=== PATIENT | female | born 1935 | race Caucasian/White ===

== ENCOUNTER → 2017-09-04 | Outpatient (CLI) | payer MEDICARE, BC ==
--- NOTE | 2017-09-04 10:37 | US ---
EXAMINATION TYPE: US transvaginal DATE OF EXAM: 09/04/2017 COMPARISON: NONE CLINICAL HISTORY: R10.2 Pelvic Pain. recent pelvic discomfort that has since stopped, h/o bilateral o ophorectomy and she thinks her uterus remains TECHNIQUE: TV Date of LMP: 40 years ago EXAM MEASUREMENTS: Uterus: atrophic versus possible hysterectomy Endometrial Stripe: not seen Right Ovary: Surgically absent Left Ovary: Surgically absent 1. Bilateral Adnexa: wnl 2. Posterior cul-de-sac: wnl IMPRESSION: 1. Surgical absence of the bilateral ovaries. 2. Uterus is not seen, which may be related to severe atrophy given the patient's age or may be surgi radha absent.
== END | disposition home or self-care (01) ==
LOC: RADUSWWP 09:57
PROVIDERS: ATTEND Obstetrics & Gynecology
DX: R10.2 Pelvic and perineal pain (principal); Z90.722 Acquired absence of ovaries, bilateral
CPT/HCPCS: 76830

== ENCOUNTER → 2019-01-13 | Outpatient (CLI) | payer MEDICARE, BC | END | disposition home or self-care (01) | LOC: LABWHC1 12:59 | PROVIDERS: ATTEND Internal Medicine Interventional Cardiology | DX: R06.09 Other forms of dyspnea (principal); I50.9 Heart failure, unspecified | CPT/HCPCS: 36415; 83880 ==

== ENCOUNTER → 2019-01-13 | Outpatient (CLI) | payer MEDICARE, BC ==
[2019-01-13 13:54] LABS: Albumin 4.5 g/dL (3.5-5.0); Calcium 9.8 mg/dL (8.4-10.2); Potassium 5.6 mmol/L (3.5-5.1); Total Bilirubin 0.5 mg/dL (0.2-1.3); Total Protein 7.6 g/dL (6.3-8.2)
[2019-01-13 14:37] LABS: HCT 42.1 % (34.0-46.0); HGB 13.3 gm/dL (11.4-16.0); MCH 29.8 pg (25.0-35.0); MCHC 31.7 g/dL (31.0-37.0); MCV 93.9 fL (80.0-100.0); Platelet Count 245 k/uL (150-450); RBC 4.48 m/uL (3.80-5.40); RDW 12.9 % (11.5-15.5); WBC 6.6 k/uL (3.8-10.6)
== END | disposition home or self-care (01) ==
LOC: LABPAT 12:57
PROVIDERS: ATTEND Internal Medicine Interventional Cardiology
DX: Z01.812 Encounter for preprocedural laboratory examination (principal); E78.2 Mixed hyperlipidemia; I35.0 Nonrheumatic aortic (valve) stenosis; R06.02 Shortness of breath
CPT/HCPCS: 80053; 85027

== ENCOUNTER → 2020-09-13 | Outpatient (CLI) | payer MEDICARE, BC ==
--- NOTE | 2020-09-13 15:25 | US ---
EXAMINATION TYPE: US venous doppler duplex LE RT DATE OF EXAM: 09/13/2020 2:06 PM COMPARISON: NONE CLINICAL HISTORY: M79.661,R22.41 PAIN AND SWELLING RT LOWER LIMB. Pain and swelling right leg SIDE PERFORMED: Right TECHNIQUE: The lower extremity deep venous system is examined utilizing real time linear array sonog beth with graded compression, doppler sonography and color-flow sonography. VESSELS IMAGED: Common Femoral Vein Deep Femoral Vein Greater Saphenous Vein * Femoral Vein Popliteal Vein Small Saphenous Vein * Proximal Calf Veins (* superficial vessels) Right Leg: Negative for DVT superficial thrombophelbitis seen in right calf area of pain. IMPRESSION: 1. Right lower extremity negative for deep venous thrombosis. 2. Some superficial thrombosis is evident within the right calf region at the location of the patient 's pain
== END | disposition home or self-care (01) ==
LOC: RADUSWWP 13:33
PROVIDERS: ATTEND Internal Medicine Interventional Cardiology
DX: I82.401 Acute embolism and thrombosis of unspecified deep veins of right lower extremity (principal); Z91.040 Latex allergy status

== ENCOUNTER → 2020-09-13 | Outpatient (CLI) | payer MEDICARE, BC ==
[2020-09-13 15:08] LABS: Basophils % (A) 1 %; Eosinophils # (A) 0.2 k/uL (0-0.7); Eosinophils % (A) 2 %; HCT 37.2 % (34.0-46.0); HGB 11.6 gm/dL (11.4-16.0); Hypochromasia Slight; Lymphocytes # (A) 1.9 k/uL (1.0-4.8); Lymphocytes % (A) 26 %; MCH 25.5 pg (25.0-35.0); MCHC 31.1 g/dL (31.0-37.0); Mean Platelet Volume 8.4; Monocytes # (A) 0.3 k/uL (0-1.0); Monocytes % (A) 4 %; Neutrophils # (A) 4.7 k/uL (1.3-7.7); Neutrophils % (A) 66 %; Platelet Count 265 k/uL (150-450); RBC 4.54 m/uL (3.80-5.40); RDW 14.9 % (11.5-15.5); WBC 7.1 k/uL (3.8-10.6)
[2020-09-13 18:27] LABS: African American GFR (CKD) 47.1 (60.0-200.0); Albumin 4.3 g/dL (3.80-4.90); Albumin/Globulin Ratio 1.87 (1.60-3.17); BUN/Creat Ratio 21.67 Ratio (12.00-20.00); Calcium 9.3 mg/dL (8.7-10.3); Globulin 2.3 g/dL (1.6-3.3); Non-African American GFR(CKD) 40.6 (60.0-200.0); Potassium 4.5 mmol/L (3.5-5.5); Total Bilirubin 0.3 mg/dL (0.3-1.2); Total Protein 6.6 g/dL (6.2-8.2)
== END | disposition home or self-care (01) ==
LOC: LABWHC1 14:21
PROVIDERS: ATTEND Nurse Practitioner Adult Health
DX: E03.9 Hypothyroidism, unspecified (principal); R06.00 Dyspnea, unspecified
CPT/HCPCS: 36415; 80053; 83880; 84439; 84443; 85025